=== PATIENT | male | born 1985 | race Two or more races ===

== ENCOUNTER 2024-02-22 20:38 | Emergency (ER) | payer MEDICAID ==
[~2024-02-22] VITALS: Ht 170.2 cm; Wt 104.3 kg
[2024-02-22] MEDS ORDERED: SEMA1PEN SQ (21:11)
[2024-02-22] MEDS ORDERED: CLIN-118 PO (22:34)
[2024-02-22] MEDS ORDERED: MUPI22OI2 TP (22:34)
[2024-02-22 23:28] VITALS: BP 135/66; TEMP 97.8; O2SAT 98
== END 2024-02-22 22:44 | disposition home or self-care (01) ==
LOC: ER 20:39
DX: L03.211 Cellulitis of face (principal); Z79.899 Other long term (current) drug therapy
CPT/HCPCS: A4606; A4663